=== PATIENT | female | born 1990 | race Caucasian/White ===

== ENCOUNTER 2022-11-20 12:18 | Emergency (ER) | payer OTHER ==
[2022-11-20 13:27] LABS: BASOPHILS % (AUTO) 0.5 %; EOSINOPHILS # (AUTO) 0.1 10^3/uL (0.0-0.7); EOSINOPHILS % (AUTO) 1.4 %; HCT - HEMATOCRIT 42.3 % (37.0-47.0); HGB - HEMOGLOBIN 13.5 g/dL (12.0-16.0); LYMPHOCYTES # (AUTO) 1.5 10^3/uL (1.5-3.5); LYMPHOCYTES % (AUTO) 18.6 %; MEAN CORPUSCULAR HEMOGLOBIN 28.7 pg (27.0-31.0); MEAN CORPUSCULAR HGB CONC 31.9 g/dL (32.0-36.0); MEAN CORPUSCULAR VOLUME 89.8 fL (81.0-99.0); MEAN PLATELET VOLUME 9.5 fL (7.9-10.8); MONOCYTES # (AUTO) 0.8 10^3/uL (0.0-1.0); MONOCYTES % (AUTO) 9.5 %; NEUTROPHILS # (AUTO) 5.5 10^3/uL (1.5-6.6); PLT - PLATELET COUNT 298 10^3/uL (130-450); RED BLOOD COUNT 4.71 10^6/uL (4.20-5.40); RED CELL DISTRIBUTION WIDTH 13.4 % (12.0-15.0); WHITE BLOOD COUNT 7.9 x10^3/uL (4.8-10.8)
[2022-11-20 13:38] LABS: CALCIUM 9.3 mg/dL (8.5-10.3); CREATININE 0.6 mg/dL (0.4-1.0); POTASSIUM 3.8 mmol/L (3.5-5.0)
--- NOTE | 2022-11-20 13:40 | ED Physician Documentation ---
PD HPI FEMALE - Stated complaint Stated Complaint: /BLEEDING - Chief complaint Chief Complaint: Abd Pain - History obtained from History obtained from: Patient - Additional information Additional information: This is a G3, P1 with history of 1 miscarriage. Known bicornuate and retroverted uterus. She had some brown discharge yesterday with spotting today. She is about 7 weeks along. No pain per se. Blood type O+. Review of Systems Constitutional: denies: Fever, Chills GI: denies: Abdominal Pain, Nausea, Vomiting PD PAST MEDICAL HISTORY - Allergies Allergies/Adverse Reactions: Allergies Allergy/AdvReac Type Severity Reaction Status Date / Time No Known Drug Allergies Allergy Verified 11/20/22 12:23 PD ED PE NORMAL - Vitals Vital signs reviewed: Yes - General General: Alert and oriented X 3, No acute distress - Abdomen Abdomen: Normal bowel sounds, Soft, Non tender - Back Back: No CVA TTP, No spinal TTP - Derm Derm: Normal color, Warm and dry - Extremities Extremities: No edema, No calf tenderness / cord - Neuro Neuro: Alert and oriented X 3, Normal speech Results - Vitals Vitals: Vital Signs - 24 hr 11/20/22 11/20/22 11/20/22 12:23 12:27 13:44 Temperature 36.5 C 36.5 C 36.5 C Heart Rate 88 88 84 Respiratory 16 16 16 Rate Blood Pressure 123/81 H 123/81 H 118/80 O2 Saturation 98 98 100 Oxygen O2 Source Room air - Labs Labs: Laboratory Tests 11/20/22 11/20/22 11/20/22 13:20 13:20 13:20 WBC 7.9 RBC 4.71 Hgb 13.5 Hct 42.3 MCV 89.8 MCH 28.7 MCHC 31.9 L RDW 13.4 Plt Count 298 MPV 9.5 Neut # (Auto) 5.5 Lymph # (Auto) 1.5 Pepin # (Auto) 0.8 Eos # (Auto) 0.1 Baso # (Auto) 0.0 Absolute Nucleated RBC 0.00 Nucleated RBC % 0.0 Sodium 136 Potassium 3.8 Chloride 101 Carbon Dioxide 26 Anion Gap 9.0 BUN 10 Creatinine 0.6 Estimated GFR (MDRD) 115 Glucose 80 Calcium 9.3 HCG, Quant Blood Type O POSITIVE 11/20/22 13:20 WBC RBC Hgb Hct MCV MCH MCHC RDW Plt Count MPV Neut # (Auto) Lymph # (Auto) Pepin # (Auto) Eos # (Auto) Baso # (Auto) Absolute Nucleated RBC Nucleated RBC % Sodium Potassium Chloride Carbon Dioxide Anion Gap BUN Creatinine Estimated GFR (MDRD) Glucose Calcium HCG, Quant 39688.00 Blood Type - Rads (name of study) Prelim ultrasound read with IUP consistent with dates, heart rate 129, small subchorionic hemorrhage, bicornuate uterus Radiology: Prelim report reviewed, EMP read indepedently PD Medical Decision Making - ED course Complexity details: reviewed results (hCG reviewed and positive, blood type O+, CBC and BMP are normal.), d/w patient Departure - Departure Disposition: 01 Home, Self Care Clinical Impression: Subchorionic hemorrhage Qualifiers: Fetus number: single or unspecified fetus Trimester: first trimester Qualified Code(s): O41.8X10 - Other specified disorders of amniotic fluid and membranes, first trimester, not applicable or unspecified Condition: Good Record reviewed to determine appropriate education?: Yes Instructions: Bleeding Early Preg Comments: As discussed, you have a subchorionic hemorrhage which is what causes the bleeding. It does raise risk of miscarriage a bit, but no evidence of that right now. Return for new or worsening symptoms. Still reasonable to have the ultrasound in a week as scheduled. Discharge Date/Time: 11/20/22 13:44
[2022-11-20 13:45] VITALS: BP 118/80
--- NOTE | 2022-11-20 14:14 | Ultrasound Report ---
PROCEDURE: OB First Trimester w/TV INDICATIONS: 7w preg/vb OUTSIDE/PRIOR DATING DATA: Last menstrual period (LMP): 10/03/2022. LMP-based estimated date of delivery (LINNEA): 07/10/2023. First dating scan (date and location): 11/20/2022. Estimated date of delivery (LINNEA) from first dating scan: 07/09/2023. TECHNIQUE: Real-time scanning was performed of the fetus and maternal pelvic organs, with image documentation. Endovaginal scanning was also performed to better visualize the fetus and maternal ovaries. COMPARISON: None. FINDINGS: Embryo: Intrauterine gestational sac is seen with yolk sac and pole are seen within the left c ornu of a bicornuate uterus. [place]-rump length is 0.9 cm, compatible with estimated gestational age o f 7 weeks 0 days. Heart rate: 135 bpm. Measurement variability in dating: +/- 4 weeks by LMP, +/- 7 days by mean sac diameter (use before 6 weeks gestation if crown-rump length not able to be measured), +/- 5 days by crown-rump length (6-12 weeks gestation). Maternal organs: Bicornuate uterus is noted. Heterogeneously hyperechoic material is seen in the righ t uterine cornua measuring 2.7 x 1.8 x 2.0 cm. Trace fluid is seen in the endocervical canal. Ovaries are not well visualized IMPRESSION: 1.Single live intrauterine with estimated gestational age 7 weeks 0 days. 2.Bicornuate uterus. Gestational sac is located in the left uterine cornu. 3.Heterogeneously hyperechoic material measuring approximately 2.7 x 1.8 x 2.0 cm in the right uterin e cornu likely represents echogenic blood products. Heterotopic is felt to be unlikely. Tra ce free fluid is seen in the endocervical canal. Reviewed by: Tyrone Benson MD on 11/20/2022 2:12 PM PST Approved by: Tyrone Benson MD on 11/20/2022 2:12 PM PST Station ID: [id number]
== END 2022-11-20 13:44 | disposition home or self-care (01) ==
LOC: ED 12:18
DX: O41.8X10 Other specified disorders of amniotic fluid and membranes, first trimester, not applicable or unspecified (principal); Z3A.01 Less than 8 weeks gestation of pregnancy
CPT/HCPCS: 36415; 80048; 84702; 85025; 86900; 86901; 99283; 99284